=== PATIENT | male | born 1955 | race Caucasian/White ===

== ENCOUNTER 2023-06-04 07:06 | Emergency (ER) | payer MEDICARE, OTHER, SELFPAY ==
[2023-06-04] VITALS (11 sets, daily range): BP systolic 150–196; BP diastolic 82–100; PULSE 51–75; RESP 15–21; TEMP 37; O2SAT 96
--- NOTE | 2023-06-04 07:15 | RT.EKG_ITS ---
APPROVED REPORT Exam: Resting ECG Reason for Exam: hypertension Patient Location: E HR:61 bpm ECG Measurements Heart Rate 61 AXIS NJ 182 P 54 QRSd 102 QRS -2 QT 390 T 26 QTc 395 Conclusion Sinus rhythm...normal P axis, V-rate 60- 99
--- NOTE | 2023-06-04 07:30 | DI.CT_ITS ---
Exam(s) CT THORAX CTA EXAM: CT THORAX CTA CLINICAL HISTORY: ?dissection. TECHNIQUE: Imaging Protocol: Axial CT angiography was performed with multi-slice acquisition and mu lti-planar and/or 3D reconstructions. CONTRAST MATERIAL: Intravenous: Omnipaque 350 contrast volume:100 mL COMPARISON: No exams were available for comparison FINDINGS: Tracheobronchial tree: Patent where visualized. Pulmonary parenchyma: No consolidation or dominant measurable mass. No architectural distortion. Calc ified granulomas present. Pulmonary Arteries: There is a question of a filling defect in a branch of the pulmonary arteries hea ding to the lingula. Mediastinum and Ariana: No dominant adenopathy or fluid collection. The esophagus is unremarkable. Visualized thyroid gland: Unremarkable. Pleura: No effusion or pneumothorax. Heart: The heart is not dilated. No coronary artery calcifications are seen. No pericardial effusion. Aorta: Thoracic aorta non-dilated. No evidence of dissection. Small atherosclerosis. Upper abdomen: There are 2 round hypodensity seen in the liver which have the appearance of cysts. There is a 2.1 cm fat density right adrenal lesion. This likely reflects an adrenal adenoma. Noneme rgent MRI of the abdomen should be obtained for further evaluation. Tubes, Catheters, and Lines: There is a monitoring device in the subcutaneous tissues overlying the l eft chest. Soft tissues: Unremarkable. Bones: Within normal limits for the patient's age. IMPRESSION: 1. Question of a filling defect in a branch of the pulmonary arteries leading to the left lingula susanne picious for pulmonary embolism. No evidence of right heart failure. 2. No evidence of a thoracic aortic aneurysm or dissection. Unexpected findings RADIATION DOSE DELIVERED: 673.93mGy.cm Total DLP 673.93mGy.cm Total DLP DATA REPOSITORY: All CT scans at this facility are submitted to the National Radiology Data Registry (NRDR) Dose Index Registry (DIR) with the [employer] (A[employer]). RADIATION OPTIMIZATION: All CT scans at this facility use at least one of these dose optimization te chniques: automated exposure control; mA and/or kV adjustment per patient size (includes targeted exa ms where dose is matched to clinical indication); or iterative reconstruction.
--- NOTE | 2023-06-04 07:41 | ED.GENADUL_ITS ---
Discharge Plan Disposition Patient Disposition: Home Condition: Stable Discharge Details Clinical Impression: Hypertension, Upper back pain Primary Care Provider: [facility] Provider: Garrett Howard Home Meds and New Rx's Prescriptions: Continued metoprolol succinate 50 mg Tablet Extended Release 24 Hr 50 mg PO DAILY losartan 25 mg Tablet 25 mg PO DAILY pramipexole 0.125 mg Tablet 0.125 mg PO QID Eliquis 5 mg Tablet 5 mg PO BID Discharge Instructions Instructions: Hypertension (ED) Additional Instructions: If your blood pressure continues to read high when you check it you can increase your losartan to 50mg Your cat scan showed a small filling defect which could indicate a small blood clot called a pulmonary embolism. With how small it is it doesn't require specific treatment. Continue your eliquis. follow up with your primary care provider when you return home if you feel more ill, have chest pain/pressure or difficulty breathing return to the emergency department Medical Decision Making 68 yo male with hx of afib on eliquis, htn, denies prior ND/stents/cabg, who comes in with left upper back pain and bp at home of 190 systolic. He states 2 days ago he was lifting something heavy when he started to have left upper back pain which he's had since. This morning he couldn't sleep and felt his heart pounding so checked his BP and it was 190 so came here. He denies chest pain/pressure, dyspnea, fevers, cough. He has reproducible pain in the left upper back over the scapula. He has clear lungs, no murmurs, soft abdomen. BP initially 196/100 and on repeat 15 minutes later is 150/85. Suspect htn and musculoskeletal pain but given his age and location of pain will obtain ekg/troponin, cbc, cmp and cta of the chest to evaluate for dissection. No hypoxia or tachycardia or evidence of dvt on exam so doubt PE labs unremarkable, pt stable, bp 150/80 no tachycardia or hypoxia, cta shows no dissection, does have a small subsegmental filling defect in branch of left lingula suspecifious for small PE. Discussed results with pt and that the evidence shows no treatment is necessary for subsegmental PE. He is stable for d/c, will continue his eliquis and f/u with his pcp when he returns home in 7 days, advised to have a repeat CT when he returns. Return precautions given Differential Diagnosis Differential Diagnosis: hypertension, acs, dissection Imaging Data Radiologic Study: Attestation: I personally reviewed and interpreted this imaging study as follows: Imaging: CT Scan Radiologist's impression: IMPRESSION: 1. Small pulmonary embolus on the left Filling defect in a branch to the lingula. Series 8, image 150 . 2. No aneurysm of the aorta. 3. No dissection of the aorta. THIS REPORT CONTAINS FINDINGS THAT MAY BE CRITICAL TO PATIENT CARE. The findings were verbally communicated via telephone conference with Garrett Howard at 9:09 AM EDT on 06/04/2023. The findings were acknowledged and understood. Lab Data Lab results reviewed: Yes I reviewed the patient's lab results. ECG Data Attestation: I personally reviewed and interpreted this ECG (s) as follows: Prior ECG tracings: not available for review Interpretation: sinus rate of 61, pr 182, no stemi HPI General Mode of arrival: ambulatory . Date/Time Provider Initiated Documentation: 06/04/23 07:07 . Limitations to Documentation: no limitations . Information obtained by: patient . History of Present Illness 68 year old M presents to the emergency department with the chief complaint of high blood pressure, described as moderate, Quality is described as aching, Patient reports no radiation. and it has been constant. No relieving factors improve symptom(s), No exacerbating factors reported . Patient notes other (palpitations); denies chest pain. Patient did receive the following treatments prior to arrival, none Related Data Home Medications Medication Instructions Recorded Confirmed apixaban 5 mg tablet (Eliquis) 5 mg PO BID 06/04/23 06/04/23 losartan 25 mg tablet 25 mg PO DAILY 06/04/23 06/04/23 metoprolol succinate 50 mg 50 mg PO DAILY 06/04/23 06/04/23 tablet,extended release 24 hr pramipexole 0.125 mg tablet 0.125 mg PO QID 06/04/23 06/04/23 Allergies Allergy/AdvReac Type Severity Reaction Status Date / Time No Known Allergies Allergy Unverified 06/04/23 07:37 General Stated Complaint: GenMedical LILLIANA: 3 Review of Systems All systems reviewed & are unremarkable except as noted in HPI and below Constitutional Constitutional: Denies chills, Denies fever(s) and Denies weakness Cardiovascular Cardiovascular: Denies chest pain and Denies dyspnea Respiratory Respiratory: Denies cough and Denies dyspnea Gastrointestinal Gastrointestinal: Denies abdominal pain, Denies nausea and Denies vomiting Integumentary/Breasts Skin/Breast: Denies rash Neurologic Neurologic: Denies weakness PFSH All Active Problems (Updated 06/04/23 @ 09:23 by Garrett Howard MD) Hypertension (Chronic) Upper back pain (Acute) Medical History (Updated 06/04/23 @ 09:23 by Garrett Howard MD) Atrial fibrillation Hypertension Social History Smoking/Tobacco Use Status: Never Smoking risk assessment performed?: Yes Alcohol Intake: current Alcohol Intake frequency: holidays/special occasions only Drug use: Never Substance use type: does not use Housing: house Do you feel safe at home: Yes Do you feel safe in your relationship?: Yes Exam Const General: no acute distress Orientation: alert HENMT Head: normal to inspection Ears: external ears normal General nose exam: external nose normal Mouth: moist mucous membranes Eyes General: appearance normal, both eyes and all related structures Neck Neck: normal visual inspection Resp Effort & Inspection: normal respiratory effort and able to speak in complete sentences Auscultation: clear to auscultation bilaterally Cardio Jugular venous pressure: no JVD Rate: regular rate Heart Sounds: no murmurs GI Palpation: soft and nontender Skin General skin exam: no rashes or lesions noted Neuro General: patient alert and patient oriented x3 Extrem General: normal to inspection Psych Mental Status: mental status grossly normal Course Vital Signs Vital signs: Vital Signs Temperature 37.0 C 06/04/23 07:15 Pulse 75 06/04/23 07:15 Respiratory Rate 20 06/04/23 07:15 Blood Pressure 196/100 H 06/04/23 07:15 Pulse Oximetry 96 06/04/23 07:15 Temperature 37.0 C 06/04/23 07:15 Temperature Source Oral 06/04/23 07:15 Pulse 60 06/04/23 07:31 Respiratory Rate 20 06/04/23 07:15 Blood Pressure 150/85 H 06/04/23 07:31 Blood Pressure Mean 103 06/04/23 07:31 Blood Pressure Position Supine 06/04/23 07:15 Pulse Oximetry 96 06/04/23 07:15 Oxygen Delivery Method Room Air 06/04/23 07:15 Oxygen Flow Rate 0 06/04/23 07:15 Pain Level 0 06/04/23 07:15
[2023-06-04 07:51] LABS: Abs Immature Grans 0.05 10^3/uL (0.0-0.06); Absolute Basophil Count 0.05 10^3/uL (0.0-0.2); Absolute Eosinophil Count 0.29 10^3/uL (0.0-0.7); Absolute Lymphocyte Count 1.52 10^3/uL (1.2-3.4); Absolute Monocyte Count 0.38 10^3/uL (0.1-0.8); Absolute Neutrophil Count 3.59 10^3/uL (1.2-6.7); Basophils % 0.9; Eosinophils % 4.9; HCT 47.3 % (40.0-50.0); HGB 16.6 g/dL (13.5-17.5); Immature Grans % 0.9; Lymphocytes % 25.9; MCH 31.1 pg (27.0-33.0); MCHC 35.1 % (32.0-36.0); MCV 89 fL (80-95); MPV 10.5 fL (8.0-11.0); Monocytes % 6.5; Neutrophils % 60.9; Platelet Count 227 10^3/uL (130-400); RBC 5.34 10^6/uL (4.36-5.78); RDW 12.8 % (11.8-14.1); RDW-SD 41.9 fL; WBC 5.88 10^3/uL (4.4-10.8)
[2023-06-04 08:12] LABS: PTT Activated 30.3 sec (21.5-31.9); Prothrombin Time 10.4 sec (9.3-11.0)
[2023-06-04 08:16] LABS: ALT 26 U/L (16-63); AST 15 U/L (15-37); Albumin 3.5 g/dL (3.4-5.0); Alkaline Phosphatase 92 U/L (46-116); Anion Gap 6.3 mmol/L (3-11); BUN 13 mg/dL (7-18); Bilirubin, Total 0.7 mg/dL (0.2-1.0); CO2 26.7 mmol/L (21.0-32.0); Chloride 105 mmol/L (98-107); Estimated GFR 82.49 (mL/min/1.73m2); Glucose 106 mg/dL (74-106); Magnesium 1.9 mg/dL (1.8-2.4); Sodium 138 mmol/L (136-145); TSH (W/Ref FT4) 6.22 uIU/mL (0.36-3.74); Total Protein 6.8 g/dL (6.4-8.2); Troponin I < 50 ng/L (<or=60)
[2023-06-04 08:33] LABS: FREE T4 1.08 ng/dL (0.76-1.46)
[2023-06-04] MEDS: Omnipaque 350 MG/ML 100 ML BTL IJ (08:38)
[2023-06-04] MEDS: Normal Saline - Diluent 50 ML VIAL IJ (08:38)
--- NOTE | 2023-06-04 09:09 | DI.VRAD_ITS ---
PROCEDURE INFORMATION: Exam: CTA Chest With Contrast Exam date and time: 06/04/2023 8:48 AM Age: 68 years old Clinical indication: Other: ? Dissection TECHNIQUE: Imaging protocol: Computed tomographic angiography of the chest with contrast. Exam focused on the arteries. 3D rendering (Not supervised by radiologist): MIP and/or 3D reconstructed images were created by the technologist. Radiation optimization: All CT scans at this facility use at least one of these dose optimization techniques: automated exposure control; mA and/or kV adjustment per patient size (includes targeted exams where dose is matched to clinical indication); or iterative reconstruction. Contrast material: OMNI 350; Contrast volume: 100 ml; Contrast route: INTRAVENOUS (IV); COMPARISON: No relevant prior studies available. FINDINGS: Pulmonary arteries: Small pulmonary embolus on the left Filling defect in a branch to the lingula. Series 8, image 150 . Aorta: No aneurysm of the aorta. No dissection of the aorta. Lungs: Unremarkable. No consolidation. No masses. Pleural spaces: Unremarkable. No pneumothorax. No pleural effusion. Heart: No evidence of right ventricular dysfunction Lymph nodes: Unremarkable. No enlarged lymph nodes. Liver: 11 mm simple cyst right lobe of the liver additional smaller adjacent simple cyst lobe of the liver Bones/joints: Unremarkable. No acute fracture. Soft tissues: Unremarkable. IMPRESSION: 1. Small pulmonary embolus on the left Filling defect in a branch to the lingula. Series 8, image 150 . 2. No aneurysm of the aorta. 3. No dissection of the aorta. THIS REPORT CONTAINS FINDINGS THAT MAY BE CRITICAL TO PATIENT CARE. The findings were verbally communicated via telephone conference with Garrett Howard at 9:09 AM EDT on 06/04/2023. The findings were acknowledged and understood. Dictated and Authenticated by: Emily Gardiner MD. Ordering:WINNIE Tucker MD
--- NOTE | 2023-06-06 12:20 | CMACTNOTE_ITS ---
Date of service: 06/06/23 Time of Service: 12:20 Care Management Activity Note Activity Note Text Activity Note Text: Nghia is seen in the ED for hypertension and upper back pain. CM is notified by the Diagnostics Dept that patient does not have a local PCP. CM contacts patient by telephone and is advised that he is in [place] on vacation and will soon be returning to [place]. At patient's request, the ED visit note is faxed to his PCP - Carlos Rouse DO ([facility], tel # [phone], fax # [phone]). 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
--- NOTE | 2023-06-06 12:20 | PDOC.CMACT ---
Date of service: 06/06/23 Time of Service: 12:20 Care Management Activity Note Activity Note Text Activity Note Text: Nghia is seen in the ED for hypertension and upper back pain. CM is notified by the Diagnostics Dept that patient does not have a local PCP. CM contacts patient by telephone and is advised that he is in [place] on vacation and will soon be returning to [place]. At patient's request, the ED visit note is faxed to his PCP - Carlos Rouse DO ([facility], tel # [phone], fax # [phone]). 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
== END 2023-06-04 09:32 | disposition home or self-care (01) ==
PROVIDERS: Emergency Provider Emergency Medicine
DX: Z79.899 Other long term (current) drug therapy; Z79.01 Long term (current) use of anticoagulants; R91.8 Other nonspecific abnormal finding of lung field; M54.9 Dorsalgia, unspecified; I10 Essential (primary) hypertension
CPT/HCPCS: 36415; 71275; 80053; 93005; 99285; 83735; 84439; 84443; 84484; 85025; 85610; 85730; 93010; J3490